=== PATIENT | male | born 1980 | race American Indian/Alaskan Native ===

== ENCOUNTER 2024-03-18 18:09 | Emergency (ER) | payer MEDICAID, OTHER ==
[~2024-03-18] VITALS: Ht 182.9 cm; Wt 95.0 kg
[2024-03-18 23:05] VITALS: BP 157/97; TEMP 98.4
[2024-03-18 23:08] VITALS: PULSE 64; RESP 16; O2SAT 94
[2024-03-18] MEDS: DexAMETHasone SOD PHOS 10MG/1ML VIAL INJ IM ONE (23:16)
== END 2024-03-18 23:25 | disposition home or self-care (01) ==
LOC: ER 18:09
DX: S16.1XXA Strain of muscle, fascia and tendon at neck level, initial encounter (principal); X58.XXXA Exposure to other specified factors, initial encounter; Y93.89 Activity, other specified; Y92.89 Other specified places as the place of occurrence of the external cause; Y99.8 Other external cause status
CPT/HCPCS: 96372; 99283; J1100